=== PATIENT | male | born 1975 | race Caucasian/White ===

== ENCOUNTER 2024-01-14 15:00 | Inpatient (IN) | payer MEDICARE ==
[~2024-01-14] VITALS: Ht 172.7 cm; Wt 145.2 kg
[2024-01-14] VITALS (21 sets, daily range): BP systolic 125–131; BP diastolic 52–75; PULSE 79–80; TEMP 98.2–98.7; O2SAT 94–99
--- NOTE | 2024-01-14 16:00 | NUR ---
PATIENT ARRIVED TO UNIT ON STRETCHER VIA EMS AT 1557. PATIENT AMBULATORY AND MOVED FROM STRETCHER TO BED INDEPENDENTLY. 20G IN LEFT ANTECUBITAL. PATIENT DID NOT ARRIVE WITH ANY FLUIDS OR INSULIN RUNNING. PATIENT ARRIVED WITH WALLET, CELL PHONE AT BEDSIDE. BELONGINGS ARE IN ROOM. HOSPITALIST MADE AWARE OF PATIENTS ARRIVAL.
--- NOTE | 2024-01-14 16:15 | NUR ---
UPON COMPLETING ADMISSION INTAKE WHICH INCLUDED SUICIDE ASSESSMENT; PT SCORED A MODERATE RISK ON THE SUICIDE ASSESSMENT. DR. RINCON WAS NOTIFIED AND SPOKE WITH THE PATIENT. PT STATED TO DR. RINCON THAT HE "ALWAYS HAS SUICIDAL THOUGHTS BUT IS NOT CURRENTLY SUICIDAL AND DOES NOT HAVE A PLACE." DR. RINCON DEEMED AND DOCUMENTED THAT PT IS A LOW LEVEL SUICIDE RISK AND THEREFEORE DOES NOT NEED ADDITIONAL MONITORING OR SCREENING.
[2024-01-14] MEDS ORDERED: Insulin Human Regular/NS 100 ML IV SCH (16:45)
[2024-01-14] MEDS ORDERED: Insulin Regular Human (NovoLIN R/HumuLIN R) IV ONE (16:45)
[2024-01-14] MEDS ORDERED: D5NS & 20 mEq KCl 1,000 ML IV SCH (17:00)
[2024-01-14] MEDS ORDERED: NS & 20 mEq KCl 1,000 ML IV SCH (17:00)
[2024-01-14] MEDS ORDERED: hydrALAZINE 20 MG/ML 1 ML VIAL IV PRN (17:30)
[2024-01-14] MEDS ORDERED: BUMEX 1MG TA1 MG/TA1 PO (17:54)
[2024-01-14] MEDS ORDERED: LANTUS SOLOS100 U/ML SQ (17:55)
[2024-01-14] MEDS ORDERED: K-DUR20 MEQ PO (17:55)
[2024-01-14] MEDS ORDERED: LIPITOR20 MG PO (17:56)
[2024-01-14] MEDS ORDERED: AMOXICILLIN 50500 MG PO (17:57)
[2024-01-14] MEDS ORDERED: PERIDEX (CHLOR480 ML MM (17:57)
[2024-01-14] MEDS ORDERED: PRIL40 PO (17:58)
[2024-01-14] MEDS ORDERED: NEURONTIN300 MG/CAP PO (17:59)
[2024-01-14] MEDS ORDERED: NORCO 325 MG-7.1 TAB PO (17:59)
[2024-01-14] MEDS ORDERED: PRINZIDE 12.5 M1 TA1 PO (18:00)
[2024-01-14] MEDS ORDERED: EUTHYROX200 MCG PO (18:01)
[2024-01-14] MEDS ORDERED: PROAIR HFA0.09 MG/AC IH (18:01)
[2024-01-14 18:02] LABS: HEMATOCRIT 45.6 % (42.0-52.0); HEMOGLOBIN 15.3 g/dl (13.5-18.0); MEAN CELL VOLUME 76 fl (80.0-100.0); MEAN CORPUSCULAR HEMOGLOBIN 26 pg (27-31); MEAN CORPUSCULAR HGB CONC 34 g/dl (33.0-37.0); PLATELET COUNT 285 K/mm3 (130-400); RED BLOOD COUNT 5.99 M/mm3 (4.20-5.60); REDCELL DISTRIBUTION WIDTH-CV 16.4 % (11.5-14.5)
[2024-01-14] MEDS ORDERED: RESTORIL 1515 MG/CAP PO (18:02)
[2024-01-14] MEDS ORDERED: VISTARIL50 MG PO (18:02)
[2024-01-14] MEDS ORDERED: WELLBUTRIN XL150 MG PO (18:03)
[2024-01-14] MEDS ORDERED: LOFIBRA160 MG PO (18:05)
[2024-01-14] MEDS ORDERED: INSULIN LI100 UNIT/2 SQ (18:05)
[2024-01-14] MEDS ORDERED: LOPRESSOR 225 MG/TAB PO (18:06)
[2024-01-14 18:14] LABS: CALCIUM 9.1 mg/dL (8.4-10.2); CREATININE, serum 1.26 mg/dL (0.72-1.25)
[2024-01-14] MEDS ORDERED: Potassium Chloride 100 ML IV SCH ×2 (18:30→23:45)
--- NOTE | 2024-01-14 18:32 | NUR ---
LENNY Salcedo night-time hospitalist notified of critical CO2. Upon further review of BMP instructed by Matias to place insulin gtt on hold until next BMP has resulted due to low potassium level. New orders received for 10 MEQ potassium IV x4 doses for a total of 40 MEQ. NS with 20 MEQ potassium increased from 100ml/hr to 250ml/hr.
[2024-01-14 19:15] LABS: PHOSPHOROUS 3.6 mg/dL (2.3-4.7)
[2024-01-14 19:37] LABS: CREATININE, serum 1.22 mg/dL (0.72-1.25)
--- NOTE | 2024-01-14 20:00 | NUR ---
Pt resting in bed. VSS. IV infusing to peripheral line with fluids and potassium. Insulin gtt currently on hold due to potassium level. Insulin gtt will be resumed once potassium level reaches 3.3. Pt complaining of pain to bilateral legs, ongoing chronic pain. Requested order for pain medication. Evening medications administered without difficulty. Evening assessment completed without difficulty. Pt denies questions at this time. Pt ambulated to toilet to void via SBA without complications.
[2024-01-14] MEDS ORDERED: Acetaminophen 500 MG TAB PO PRN (21:15)
[2024-01-14 21:21] LABS: CALCIUM 8.8 mg/dL (8.4-10.2); CREATININE, serum 1.2 mg/dL (0.72-1.25); POTASSIUM 3.4 mEq/L (3.5-4.5)
[2024-01-14 23:21] LABS: CREATININE, serum 1.16 mg/dL (0.72-1.25); POTASSIUM 3.3 mEq/L (3.5-4.5)
[2024-01-14] MEDS ORDERED: D5 1/2 NS & 20 mEq KCl 1,000 ML IV SCH (23:45)
[2024-01-15] VITALS (23 sets, daily range): BP systolic 100–145; BP diastolic 55–87; PULSE 77–85; TEMP 97.9–98.5; O2SAT 92–99
[2024-01-15 01:39] LABS: CALCIUM 7.9 mg/dL (8.4-10.2); CREATININE, serum 1.11 mg/dL (0.72-1.25); POTASSIUM 3.2 mEq/L (3.5-4.5)
[2024-01-15 05:25] LABS: BASO % 0.7 % (0.0-2.0); EOS # 0.2 K/mm3 (0.0-0.7); EOS % 3.1 % (0.0-4.0); GRAN # 3.3 K/mm3 (1.4-6.5); HEMATOCRIT 42.1 % (42.0-52.0); LYMPH # 1.3 K/mm3 (1.2-3.4); LYMPH % 24.4 % (20.0-51.0); MEAN CELL VOLUME 77 fl (80.0-100.0); MEAN CORPUSCULAR HEMOGLOBIN 26 pg (27-31); MEAN CORPUSCULAR HGB CONC 33 g/dl (33.0-37.0); MONO # 0.6 K/mm3 (0.1-0.6); MONO % 11.4 % (1.7-9.3); PLATELET COUNT 210 K/mm3 (130-400); RED BLOOD COUNT 5.48 M/mm3 (4.20-5.60); REDCELL DISTRIBUTION WIDTH-CV 16.1 % (11.5-14.5)
[2024-01-15 05:41] LABS: CREATININE, serum 0.99 mg/dL (0.72-1.25); POTASSIUM 3.1 mEq/L (3.5-4.5)
--- NOTE | 2024-01-15 06:15 | NUR ---
Pt has had a total of 160 MEQ of KCL in the past 12 hours. Potassium level this AM 3.1. Provider ordered an additional 40 MEQ to be administered. This order verified with pharmacy and pharmacist OK with proceeding.
[2024-01-15] MEDS ORDERED: Potassium Chloride 100 ML IV SCH (06:30)
--- NOTE | 2024-01-15 07:00 | NUR ---
REPORT RECEIVED FROM SEBASTIÁN ROSS. PT RESTING IN BED, VSS ON ROOM AIR. POTASSIUM INFUSING TO PERIPHERAL IV IN L AC, INSULIN AND FLUIDS ON STANDBY AT THIS TIME. PT IS ALERT AND ORIENTED, USES CALL LIGHT FOR NEEDS.
[2024-01-15] MEDS ORDERED: Dextrose (Glucose) 15 GM (4 x 3.75 GM) Chewable TABLET PACK PO PRN (07:15)
[2024-01-15] MEDS ORDERED: Glucagon 1 MG VIAL IM PRN (07:15)
[2024-01-15] MEDS ORDERED: Dextrose 50% Water 25 GM/50 ML SYRINGE IV PRN (07:15)
[2024-01-15] MEDS ORDERED: Pantoprazole 40 MG in NS 10 ML IV SCH (09:00)
[2024-01-15 09:12] LABS: CALCIUM 8.7 mg/dL (8.4-10.2); CREATININE, serum 1.06 mg/dL (0.72-1.25); POTASSIUM 3.7 mEq/L (3.5-4.5)
[2024-01-15] MEDS ORDERED: *Potassium Replacement Protocol MC SCH (09:15)
[2024-01-15] MEDS ORDERED: Insulin Glargine-ygfn (Lantus) SQ SCH ×2 (09:30→21:30)
--- NOTE | 2024-01-15 10:06 | NUR ---
Product Director met with patient to discuss discharge planning. Patient lives in [place] with his , Beatriz (ph#[phone]) and sees Dr. Brown for primary care. Patient reported he and Beatriz moved to [place] from [place] in November for Beatriz's job. Patient has also been established with [facility]. Patient uses [facility] for medications and he advised he hasn't had issues affording medications. Patient is diabetic and stated he does not have issues affording supplies. Patient uses no DME and is independent with [facility]. Patient does not have DPOA-HC and is not interested in completing one at this time. Discharge Plan: Home
[2024-01-15] MEDS ORDERED: Insulin Lispro (HumaLOG) SQ SCH ×3 (12:00→17:00)
[2024-01-15] MEDS ORDERED: Potassium Bicarbonate/Citrate 20 MEQ Effervescent TAB PO SCH (12:00)
[2024-01-15] MEDS ORDERED: ZOLOFT 100MG100 MG PO ×2 (12:06→12:44)
[2024-01-15] MEDS ORDERED: buPROPion SR (12-HR) 150 MG TAB PO SCH (12:10)
[2024-01-15] MEDS ORDERED: Sertraline 50 MG TAB PO SCH (12:10)
[2024-01-15] MEDS ORDERED: buPROPion XL (24-HR) 150 MG TAB PO SCH (12:13)
[2024-01-15] MEDS ORDERED: WELLBUTRIN XL150 MG PO (12:44)
--- NOTE | 2024-01-15 13:30 | NUR ---
ADDITIONAL 12U OF HUMALOG AND 35U OF LANTUS GIVEN PER ONE TIME ORDER FROM DR UMAÑA.
--- NOTE | 2024-01-15 18:54 | NUR ---
PATIENT LYING ON RIGHT SIDE TALKING ON PHONE WITH ALL LIGHT OFF AND TV OFF WITH NO FAMILY PRESENT WITH NO ACUTE DISTRESS NOTED. PATIENT ON ROOM AIR. INT TO LEFT AC INTACT WITH NO COMPLICATIONS NOTED. TELEMETRY INTACT. BEDSIDE SHIFT REPORT COMPLETED WITH NGA AT THIS TIME. PATIENT DENEIS ANY NEEDS. BED IN LOW POSITION WITH WHEELS LOCKED WITH RIALS UP X2 AND CALL LIGHT WITHIN REACH.
--- NOTE | 2024-01-15 18:55 | NUR ---
Pt arrived to room 319 via w/c from the ICU at approximately 1530. Denies pain or needs. Assessment completed.
--- NOTE | 2024-01-15 20:45 | NUR ---
PATIENT UP IN BATHROOM UPON PRIMARY NURSE ENTERING ROOM. PATIENT AMBULATED TO BED AND SAT DOWN ON EDGE. GAIT STEADY. RESPIRATIONS EVEN AND UNLABORED WITH NO ACUTE DISTRESS NOTED. PATIENT ON ROOM AIR. INT TO LEFT AC INTACT WITH NO COMPLICATIONS NOTED. TELEMETRY INTACT. ASSESSMENT AND MEDICATION ADMINISTRATION COMPLETED AT THIS TIME. PATIENT TOLERATED WELL. PATIENT DENIES ANY NEEDS AT THIS TIME. BED IN LOW POSITION WITH WHEELS LOCKED WITH RAILS UP X2 AND CALL LIGHT WITHIN REACH.
[2024-01-16 04:31] LABS: HEMATOCRIT 42.1 % (42.0-52.0); HEMOGLOBIN 14.2 g/dl (13.5-18.0); MEAN CELL VOLUME 77 fl (80.0-100.0); MEAN CORPUSCULAR HEMOGLOBIN 26 pg (27-31); MEAN CORPUSCULAR HGB CONC 34 g/dl (33.0-37.0); MEAN PLATELET VOLUME 9.3 fl (7.4-10.4); PLATELET COUNT 188 K/mm3 (130-400); RED BLOOD COUNT 5.44 M/mm3 (4.20-5.60); REDCELL DISTRIBUTION WIDTH-CV 15.9 % (11.5-14.5)
[2024-01-16 04:45] LABS: CALCIUM 8.1 mg/dL (8.4-10.2); CREATININE, serum 0.88 mg/dL (0.72-1.25); POTASSIUM 3.1 mEq/L (3.5-4.5)
[2024-01-16 05:00] VITALS: BP 117/66; PULSE 73; TEMP 98.1
--- NOTE | 2024-01-16 07:29 | NUR ---
Bedside report received from SEBASTIÁN Castro. Pt awake in bed with no complaints. Call light within reach. [facility] ADN student Gui at bedside completing cares with this nurse this AM.
--- NOTE | 2024-01-16 07:44 | NUR ---
PATIENT SITTING IN CHAIR AT THIS TIME. C/O PAIN TO BILATERAL CALVES DENIES NEED FOR PAIN INTERVENTION AT THIS TIME. C/O EYE ITCHINESS THIS PROCESS CHEESE COOKER INFORMED PRIMARY NURSE. BREAKFAST HAS BEEN ORDER. CALLIGHT AND BELONGINGS IN REACH.
[2024-01-16 07:55] VITALS: BP 136/60; PULSE 79; TEMP 97.9
[2024-01-16] MEDS ORDERED: Potassium Bicarbonate/Citrate 20 MEQ Effervescent TAB PO SCH (08:00)
[2024-01-16 08:57] VITALS: BP_SYST 136
--- NOTE | 2024-01-16 09:10 | NUR ---
Pt awake in recliner with complaints of itchiness to eyes. Shift assessment completed. VSS. ADN student Gui completed head to toe assessment for clinical period. INT to Lt AC patent with no swelling, redness, or drainage. Pt has no request at this time. Call light within reach.
[2024-01-16] MEDS ORDERED: Ketotifen 0.025% Ophth Soln 5 ML BOTTLE OP SCH (09:30)
--- NOTE | 2024-01-16 09:54 | NUR ---
Initial visit; Patient very private though thanked Mental Health Program Manager for coming in and offering Spiritual Care, though he declined.
[2024-01-16 11:31] VITALS: BP 138/79; PULSE 81; TEMP 97.7
[2024-01-16] MEDS ORDERED: Insulin Lispro (HumaLOG) SQ SCH (12:00)
--- NOTE | 2024-01-16 13:32 | NUR ---
PATIENT IN BED RESTING. AWAITING ORDERS FOR POSSIBLE DISCHARGE PENDING RESULTS OF SERUM POTASIUM. PT DENIES NEED FOR ANYTHING AT THIS TIME. CALL LIGHT IN REACH AND BED IN LOWEST POSTITION.
[2024-01-16 13:50] VITALS: BP_SYST 138
--- NOTE | 2024-01-16 13:52 | NUR ---
Notified Dr. Guadarrama of recheck potassium of 3.4. TORB for 40 meq of Potassium Tab once now.
--- NOTE | 2024-01-16 15:29 | NUR ---
Discharge instructions provided to pt and pt spouse. Pt verbalized understanding of discharge paperowrk. INT to Rt AC discontinued with tip intact, pt tolerated well with no complaints. Telemetry discontinued. Pt left facility with spouse back to home.
== END 2024-01-16 15:30 | disposition home or self-care (01) | DRG 638 ==
LOC: ICU 15:00 → MEDICAL 16:02
PROVIDERS: ADMIT Internal Medicine
DX: E11.10 Type 2 diabetes mellitus with ketoacidosis without coma (principal); N17.9 Acute kidney failure, unspecified; F32.A Depression, unspecified; E78.5 Hyperlipidemia, unspecified; F41.9 Anxiety disorder, unspecified; H10.9 Unspecified conjunctivitis; I25.10 Atherosclerotic heart disease of native coronary artery without angina pectoris; F43.10 Post-traumatic stress disorder, unspecified; I10 Essential (primary) hypertension; K21.9 Gastro-esophageal reflux disease without esophagitis; E11.40 Type 2 diabetes mellitus with diabetic neuropathy, unspecified; Z79.890 Hormone replacement therapy; Z87.891 Personal history of nicotine dependence; Z79.84 Long term (current) use of oral hypoglycemic drugs; Z79.4 Long term (current) use of insulin; Z91.52 Personal history of nonsuicidal self-harm; Z79.899 Other long term (current) drug therapy; E89.0 Postprocedural hypothyroidism
CPT/HCPCS: J1650; J1815; J2470; J3480